=== PATIENT | male | born 1985 | race Hispanic/Latino ===

== ENCOUNTER 2024-06-12 21:36 | Emergency (ER) | payer SELFPAY ==
[~2024-06-12] VITALS: Ht 167.6 cm; Wt 76.0 kg
[2024-06-12] VITALS (9 sets, daily range): BP systolic 107–148; BP diastolic 65–105
[2024-06-12 22:03] LABS: BASO% 0.3 % (0-3); EOS% 3.1 % (0-8); HEMATOCRIT 44.2 % (39.0-50.0); HEMOGLOBIN 14.6 g/dl (14.0-18.0); IMMATURE GRANULOCYTES 0.9 % (0.0-5.0); LYMPH% 50.5 % (15-41); MEAN CELL VOLUME 96.3 fL CALC (80.0-100.0); MEAN CORPUSCULAR HGB 31.8 pG CALC (26.0-32.0); MONO% 6.5 % (2-13); NEUT# 3.56 thou/uL (1.82-7.42); NEUT% 38.7 % (42-76); RED BLOOD COUNT 4.59 mill/uL (4.70-6.10); RED CELL DISTRI WIDTH 13.2 % (11.5-15.5)
[2024-06-12 22:14] LABS: ALBUMIN 4.4 g/dL (3.2-5.0); ALKALINE PHOSPHATASE 115 u/l (38-126); ANION GAP 18 (6-22 (CALC)); BILIRUBIN, TOTAL 0.4 mg/dL (0.2-1.3); BUN 16 mg/dL (9-20); BUN/CREATININE RATIO 17 (12-20 (CALC)); CARBON DIOXIDE 21 mmol/l (22-30); CHLORIDE 106 mmol/l (95-108); CPK 242 u/l (55-170); CREATININE 0.9 mg/dL (0.7-1.3); ESTIMATED GFR 113 ML/MIN (>=90 (CALC)); ETHYL ALCOHOL 106 mg/dl (0-30); POTASSIUM 3.4 mmol/l (3.5-5.1); SGOT/AST 35 u/l (17-59); SODIUM 141 mmol/l (137-146); TOTAL PROTEIN 7.6 g/dL (6.3-8.2)
[2024-06-12 22:45] LABS: TSH, 3RD GENERATION 1.37 uIU/mL (0.47 - 4.68)
== END 2024-06-12 23:40 | disposition home or self-care (01) | DRG 897 ==
LOC: ED 21:36
PROVIDERS: Family Medicine
DX: F10.129 Alcohol abuse with intoxication, unspecified (principal); Y90.5 Blood alcohol level of 100-119 mg/100 ml; F41.9 Anxiety disorder, unspecified

== ENCOUNTER 2024-06-27 01:04 | Emergency (ER) | payer SELFPAY ==
[~2024-06-27] VITALS: Ht 167.6 cm; Wt 90.0 kg
[2024-06-27] MEDS ORDERED: SODIUM CHLORIDE 0.9% 1,000 ML IV ONE (03:00)
[2024-06-27] MEDS ORDERED: Pantoprazole Sodium 40 MG VIAL (Protonix) IV ONE (03:00)
[2024-06-27] MEDS ORDERED: ONDANSETRON HCl 4 MG/2 ML SDV IV ONE (03:00)
[2024-06-27 03:03] LABS: BASO% 0.2 % (0-3); HEMATOCRIT 49.1 % (39.0-50.0); HEMOGLOBIN 16.6 g/dl (14.0-18.0); IMMATURE GRANULOCYTES 0.5 % (0.0-5.0); LYMPH% 9.8 % (15-41); MEAN CELL VOLUME 93.2 fL CALC (80.0-100.0); MEAN CORPUSCULAR HGB 31.5 pG CALC (26.0-32.0); MEAN CORPUSCULAR HGB CONC 33.8 g/dL CAL (32.0-36.0); MONO% 5.7 % (2-13); NEUT# 12.12 thou/uL (1.82-7.42); NEUT% 82.8 % (42-76); RED BLOOD COUNT 5.27 mill/uL (4.70-6.10); RED CELL DISTRI WIDTH 12.8 % (11.5-15.5)
[2024-06-27 03:09] LABS: ALBUMIN 5.1 g/dL (3.2-5.0); BILIRUBIN, TOTAL 1.2 mg/dL (0.2-1.3); POTASSIUM 4.4 mmol/l (3.5-5.1); TOTAL PROTEIN 8.8 g/dL (6.3-8.2)
[2024-06-27] MEDS ORDERED: PROTONIX40 MG PO (05:03)
[2024-06-27 05:23] VITALS: BP 134/90
[2024-06-27] MEDS ORDERED: KETOROLAC TROMETHAMINE 30 MG/ML SDV IV ONE (05:30)
[2024-06-27] MEDS ORDERED: ONDANSETRON4 MG PO (05:34)
== END 2024-06-27 05:37 | disposition home or self-care (01) | DRG 392 ==
LOC: ED 01:04
PROVIDERS: Family Medicine
DX: K29.70 Gastritis, unspecified, without bleeding (principal); K29.80 Duodenitis without bleeding
CPT/HCPCS: J2405; J2470